=== PATIENT | female | born 1950 | race Caucasian/White ===

== ENCOUNTER 2018-01-20 08:35 | Day surgery (SDC) | payer MEDICARE, OTHER ==
[~2018-01-20 08:35] MED LIST: Propofol 200 MG/20 ML SDV ONE; Sodium Chloride 0.9% 5 ML Syringe FLUSH PRN
[2018-01-20] MEDS: Lactated Ringers 1,000 ML IV SCH (09:00)
[2018-01-20] MEDS ORDERED: Propofol 200 MG/20 ML SDV ONE ×3 (09:18→09:56)
[2018-01-20] MEDS ORDERED: Propofol 200 MG/20 ML SDV IV ONE (09:30)
--- NOTE | 2018-01-20 11:16 | PCM.PRNOTE ---
- Free Text/Narrative Note: PROCEDURE PERFORMED: Colonoscopy PRE-PROCEDURE DIAGNOSIS/INDICATION FOR PROCEDURE: Positive Cologuard; Hx breast cancer CONSENT: Informed consent was obtained prior to the procedure after discussion of the risks (including pain, bleeding, infection, perforation, adverse reaction to anesthesia, cardiovascular event), benefits and alternatives and expected outcomes. The patient expressed understanding and wished to proceed. Verbal consent given and consent form signed. PROCEDURAL PAUSE: Completed SEDATION: Per anesthesia DESCRIPTION OF PROCEDURE: Patient was placed in the left lateral decubitus position. After adequate sedation and anesthetic was administered, a rectal exam was performed revealing a large external hemorrhoid. A lubricated Olympus Video Colonoscope was inserted into the rectum and air insufflation was performed. The colonoscope was advanced through the rectum, sigmoid, descending, transverse, and ascending colon without difficulties. The cecum was reached and the ileocecal valve as well as the appendiceal orifice were identified and pictorially documented. After adequate visualization of the cecum, the scope was withdrawn, giving 360- degree views of the colonic mucosa and retroflexion was performed in the rectum with the following findings noted: Ileocecal valve: Normal Cecum: Normal Ascending colon: Normal Hepatic flexure: Normal Transverse colon: Normal Splenic flexure: Normal Descending colon: Diverticulosis; 3mm polyp at 75cm removed with cold forceps (pathology container 1) Sigmoid colon: Diverticulosis; 5mm polyp at 30cm removed with hot snare ( pathology container 2); 2mm polyp at 30cm removed with hot forceps (pathology container 3); 8mm polyp removed with hot forceps (pathology container 5); 3mm polyp at 25cm removed with hot forceps (pathology container 4); 1cm polyp removed with hot snare (pathology container 6) Rectum: Internal hemorrhoids; Two 6cm polyps removed with hot snare ( pathology container 7) Each polyp was pictorially documented before and after removal with adequate removal and hemostasis noted at each site The scope was straightened, air suction performed, and the scope withdrawn without complication. Preparation adequacy good. IMPRESSION: Colonoscopy performed revealing internal and external hemorrhoids, diverticulosis, and 8 polyps s/p polypectomy with pathology now pending. PLAN: Will follow-up with patient in the clinic in 1 week to review pathology results. Encourage increased fiber diet and bowel regimen to ensure 1-2 soft bowel movements per day.
[2018-01-20 12:25] VITALS: BP 155/91
== END 2018-01-20 12:10 | disposition home or self-care (01) ==
LOC: KA.SDS 08:35
PROVIDERS: ATTEND Family Medicine
DX: D12.5 Benign neoplasm of sigmoid colon (principal); D12.8 Benign neoplasm of rectum; K63.5 Polyp of colon; K64.8 Other hemorrhoids; K64.4 Residual hemorrhoidal skin tags; K57.30 Diverticulosis of large intestine without perforation or abscess without bleeding; E87.6 Hypokalemia; E66.9 Obesity, unspecified; Z68.37 Body mass index [BMI] 37.0-37.9, adult; Z79.899 Other long term (current) drug therapy; Z90.49 Acquired absence of other specified parts of digestive tract; Z90.11 Acquired absence of right breast and nipple; Z98.890 Other specified postprocedural states; Z92.3 Personal history of irradiation; Z85.3 Personal history of malignant neoplasm of breast; Z92.21 Personal history of antineoplastic chemotherapy
CPT/HCPCS: 00812; 88305; J2704; J7120

== ENCOUNTER 2022-01-08 08:52 | Day surgery (SDC) | payer MEDICARE, OTHER ==
[2022-01-08] MEDS ORDERED: Sodium Chloride 0.9% 10 ML Syringe FLUSH PRN (09:00)
[2022-01-08] MEDS: Lactated Ringers 1,000 ML IV SCH (09:05)
[2022-01-08] MEDS ORDERED: Midazolam 1 MG/ML 2 ML SDV ONE (09:28)
[2022-01-08] MEDS ORDERED: Propofol 200 MG/20 ML SDV ONE (09:29)
== END 2022-01-08 12:20 | disposition home or self-care (01) ==
LOC: KA.SDS 08:52
PROVIDERS: ATTEND Family Medicine
DX: D12.3 Benign neoplasm of transverse colon (principal); D12.4 Benign neoplasm of descending colon; K57.30 Diverticulosis of large intestine without perforation or abscess without bleeding; K64.2 Third degree hemorrhoids; K64.4 Residual hemorrhoidal skin tags; E66.9 Obesity, unspecified; Z90.49 Acquired absence of other specified parts of digestive tract; Z98.890 Other specified postprocedural states; Z79.899 Other long term (current) drug therapy; Z20.822 Contact with and (suspected) exposure to COVID-19
CPT/HCPCS: 00812; J2250; J2704; J7120